=== PATIENT | female | born 1980 | race Caucasian/White ===

== ENCOUNTER → 2018-12-07 | Outpatient (CLI) | payer OTHER, SELFPAY ==
[2015-06-10 13:09] VITALS: BMI 35.6
[2018-12-07 10:02] LABS: Platelet Count 286 K/mm3 (150-450)
[2018-12-07 10:27] LABS: Valproic Acid (Depakene) Level 78 ug/mL (50-100)
[2018-12-07 10:31] LABS: AST(SGOT) 17 U/L (15-37); Alanine Aminotransfer ALT/SGPT 27 U/L (13-56)
== END | disposition home or self-care (01) ==
LOC: MTLAB 09:14
PROVIDERS: Family Provider Family Medicine; PCP Family Medicine; Referring Provider Psychiatry & Neurology Psychiatry; Visit Provider Psychiatry & Neurology Psychiatry
DX: Z79.899 Other long term (current) drug therapy (principal)
CPT/HCPCS: 36415; 80164; 84450; 84460; 85049